=== PATIENT | female | born 2000 | race African-American/Black ===

== ENCOUNTER 2020-02-01 09:13 | Emergency (ER) | payer OTHER, SELFPAY ==
[2020-02-01 09:16] VITALS: BP 139/98; PULSE 98; RESP 18; TEMP 36.3; O2SAT 100
--- NOTE | 2020-02-01 10:41 | ED.EAR ---
HPI - Ear Problem General Chief complaint: Ear Stated complaint: ear pain/no smell Time Seen by Provider: 02/01/20 10:11 Source: patient Mode of arrival: ambulatory Limitations: no limitations History of Present Illness HPI Narrative: This is a 19-year-old female that presents the emergency department for left ear pain x4 days. Reports she has intermittently heard some buzzing in the ear as well. Also reports congestion and loss of smell. Reports she was concerned and wanted to be tested for COVID. Denies fever, sore throat, cough, or shortness of breath. Related Data Home Medications Medication Instructions Recorded Confirmed albuterol mcg INHALATION 02/01/20 Allergies Allergy/AdvReac Type Severity Reaction Status Date / Time No Known Allergies Allergy Verified 02/01/20 09:20 Review of Systems Review of Systems: Narrative: CONSTITUTIONAL: Denies fever ENT: Reports rhinorrhea, congestion, otalgia. Denies sore throat RESPIRATORY: Denies cough or dyspnea. All systems reviewed & are unremarkable except as noted in HPI and below PMFSH Past Medical History Medical History (Updated 02/01/20 @ 10:49 by Haleigh Hayes PA-C) History of asthma History of seizures Exam Narrative: Exam Narrative: GENERAL: Well-appearing, well-nourished, and in no acute distress. HEAD: Normocephalic, atraumatic. EYES: EOMI. ENT: Turbinates swollen and pale. Mucous membranes moist. Oropharynx without tonsillar hypertrophy exudate or other lesions. Bilateral TMs pearly story non-bulging. Normal external auditory canals bilaterally NECK: Supple. No adenopathy or masses. CHEST: Clear to auscultation. No respiratory distress. No wheezes rales or rhonchi HEART: Regular rate and rhythm. No murmur heard. Normal peripheral pulses. EXTREMITIES: Normal range of motion. No edema. SKIN: Warm, dry, no rash. NEURO: No focal deficits. Alert and oriented x3. PSYCH: Normal mood and affect Course Vital Signs Vital signs: Vital Signs Temperature 97.3 F L 02/01/20 09:16 Pulse Rate 98 02/01/20 09:16 Respiratory Rate 18 02/01/20 09:16 Blood Pressure 139/98 H 02/01/20 09:16 Pulse Oximetry 100 02/01/20 09:16 Temperature 97.3 F L 02/01/20 09:16 Pulse Rate 98 02/01/20 09:16 Respiratory Rate 18 02/01/20 09:16 Blood Pressure 139/98 H 02/01/20 09:16 Pulse Oximetry 100 02/01/20 09:16 Medical Decision Making MDM Narrative Medical decision making narrative: Patient presents the emergency department for cold symptoms x4 days. She is afebrile and nontoxic-appearing. Lungs are clear on exam. Was reporting left ear pain, left external auditory canal and TM are normal. SARS-CoV-2 was sent. Patient was educated on care of viral infection. She is to follow-up with primary care doctor. She was given warnings to return to the ER Vital Signs Vital Signs: Vital Signs Temperature 97.3 F L 02/01/20 09:16 Pulse Rate 98 02/01/20 09:16 Respiratory Rate 18 02/01/20 09:16 Blood Pressure 139/98 H 02/01/20 09:16 Pulse Oximetry 100 02/01/20 09:16 Temperature 97.3 F L 02/01/20 09:16 Pulse Rate 98 02/01/20 09:16 Respiratory Rate 18 02/01/20 09:16 Blood Pressure 139/98 H 02/01/20 09:16 Pulse Oximetry 100 02/01/20 09:16 Lab Data Labs: Lab Results 02/01/20 Range/Units 10:31 SARS-CoV-2 RNA (RT-PCR) Pending Critical Care Time Critical Care Time Critical Care Time: No Discharge Plan Discharge Clinical Impression: Acute viral syndrome, Person under investigation for severe acute respiratory syndrome coronavirus 2 (SARS-CoV-2) infection Patient Disposition: Home, Self-Care Condition: Stable Instructions: Viral Syndrome (ED), COVID-19 (Coronavirus Disease 2019) (ED) Additional Instructions: Return to the emergency department for worsening symptoms, or any other concerns Remain well-hydrated, get plenty of rest. Take Tylenol or Motrin [id number] for pain as n
[2020-02-01 10:59] VITALS: BP 140/85; PULSE 75; RESP 18; O2SAT 99
[2020-02-01 18:59] LABS: SARS-CoV-2 RNA PCR Positive
== END 2020-02-01 11:00 | disposition home or self-care (01) ==
PROVIDERS: Physician Assistant; Emergency Provider Emergency Medicine
DX: U07.1 COVID-19 (principal); J45.909 Unspecified asthma, uncomplicated
CPT/HCPCS: 87635; 99283; C9803; U0003